=== PATIENT | female | born 1975 | race Caucasian/White ===

== ENCOUNTER 2017-08-21 08:07 | Emergency (ER) | payer BC ==
[~2017-08-21] VITALS: Ht 165.1 cm; Wt 74.8 kg
[~2017-08-21 08:07] MED LIST: CHANTIX1 MG PO; CLONAZEPAM 0.50.5 M1 PO; ENDOCET 10-3251 EACH PO; MOBIC15 MG PO; ULTRAM 50MG TAB50 MG PO
[2017-08-21] MEDS ORDERED: ZANAFLEX2 MG PO (08:18)
[2017-08-21] MEDS ORDERED: TRAZODONE 150150 M1 PO (08:18)
[2017-08-21] MEDS ORDERED: UNICOMPLEX M TA1 TA1 PO (08:19)
[2017-08-21 08:34] LABS: NUCLEATED RBCS 0 /100WBC; RDW-CV 13.7 % (10.5-14.5)
[2017-08-21 08:35] LABS: ABSOLUTE BASOPHILS 0.1 thou/uL (0.0-0.2); ABSOLUTE EOSINOPHILS 0.1 thou/uL (0.0-0.7); ABSOLUTE LYMPHOCYTES 2.3 thou/uL (0.8-5.3); ABSOLUTE MONOCYTES 0.7 thou/uL (0.0-1.2); ABSOLUTE NEUTROPHILS 4.8 thou/uL (1.6-8.1); BASOPHILS 0.8 %; EOSINOPHILS 1.8 %; HEMATOCRIT 39.6 % (37.0-47.0); HEMOGLOBIN 13.4 gm/dL (12.0-15.0); LYMPHOCYTES 28.8 %; MCH 31.9 pg (26.0-34.0); MCHC 33.8 g/dL (28.0-37.0); MCV 94.4 fL (80.0-100.0); MONOCYTES 8.2 %; MPV 6.6 fl. (7.2-11.1); PLATELET COUNT* 479 thou/uL (150-400); POLYS 60.4 %
[2017-08-21 08:42] LABS: ANION GAP 7 mmol/L (7-16); BUN 14 mg/dL (7-18); CALCIUM 8.9 mg/dL (8.5-10.1); CHLORIDE 102 mmol/L (98-107); CO2 29 mmol/L (21-32); CREATININE 0.9 mg/dL (0.6-1.3); GLUCOSE 97 mg/dL (70-99); SODIUM 138 mmol/L (136-145)
[2017-08-21 08:49] LABS: ALBUMIN 3.7 g/dL (3.4-5.0); ALKALINE PHOSPHATASE 62 U/L (46-116); LIPASE 64 U/L (73-393); SGOT 16 U/L (15-37); SGPT 25 U/L (30-65); TOTAL BILIRUBIN 0.3 mg/dL (<0.1-1.0); TOTAL PROTEIN 7.2 g/dL (6.4-8.2); TROPONIN-I LEVEL <0.06 ng/mL (<0.06)
[2017-08-21 08:53] LABS: INR 1.1; PROTIME 10.5 Seconds (9.20-11.50)
[2017-08-21 09:08] LABS: URINE BILIRUBIN NEGATIVE (Negative); URINE BLOOD NEGATIVE (Negative); URINE CLARITY CLEAR; URINE COLOR YELLOW; URINE GLUCOSE-RANDOM NEGATIVE (Negative); URINE KETONES NEGATIVE (Negative); URINE LEUKOCYTES-REFLEX NEGATIVE (Negative); URINE NITRITE-REFLEX NEGATIVE (Negative); URINE PROTEIN NEGATIVE (Negative); URINE SPECIFIC GRAVITY 1.025 (1.005-1.030); URINE UROBILINOGEN 0.2 E.U./dl (0.2-1.0)
[2017-08-21 10:28] VITALS: BP 121/81
--- NOTE | 2017-08-21 14:24 | EKG ---
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
== END 2017-08-21 09:38 | disposition home or self-care (01) ==
LOC: M.ERS 08:07
PROVIDERS: Family Medicine
DX: R55 Syncope and collapse (principal); F32.9 Major depressive disorder, single episode, unspecified; Z88.5 Allergy status to narcotic agent; Z88.6 Allergy status to analgesic agent